=== PATIENT | female | born 1980 | race Caucasian/White ===

== ENCOUNTER 2019-06-25 14:48 | Emergency (ER) | payer OTHER ==
[~2019-06-25] VITALS: Ht 165.1 cm; Wt 69.0 kg
[2019-06-25] MEDS ORDERED: NORCO 7.5-3251 EACH PO (17:11)
== END 2019-06-25 17:30 | disposition home or self-care (01) ==
LOC: ED 14:48
PROC: 0RSMXZZ Reposition Left Elbow Joint, External Approach (ICD-10-PCS; principal; 2019-06-25)
DX: S53.125A Posterior dislocation of left ulnohumeral joint, initial encounter (principal); Z88.0 Allergy status to penicillin; W01.10XA Fall on same level from slipping, tripping and stumbling with subsequent striking against unspecified object, initial encounter
CPT/HCPCS: 24600; 73060; 73070; 73080; 99283-25; J1170; J2704